=== PATIENT | male | born 1990 | race Hispanic/Latino ===

== ENCOUNTER 2023-08-10 06:39 | Day surgery (SDC) | payer OTHER ==
[2023-08-06 10:56] LABS: BASOPHILS # (AUTO) 0.03 K/uL (0.00-0.20); BASOPHILS % (AUTO) 0.4 % (0.0-5.0); EOSINOPHILS # (AUTO) 0.15 K/uL (0.00-0.70); EOSINOPHILS % (AUTO) 1.9 % (0.0-8.0); HEMATOCRIT 47.9 % (42-54); IMMATURE GRANULOCYTE ABSOLUTE 0.02 K/uL (0-1); LYMPHOCYTES # (AUTO) 3.4 K/uL (1.0-4.8); LYMPHOCYTES % (AUTO) 43.5 % (21.0-51.0); MEAN CORPUSCULAR HEMOGLOBIN 30.1 pg (27.0-33.0); MEAN CORPUSCULAR HGB CONC 34.7 g/dL (32.0-36.0); MEAN CORPUSCULAR VOLUME 86.9 fL (79-99); MONOCYTES # (AUTO) 0.6 K/uL (0.1-1.0); MONOCYTES % (AUTO) 7.1 % (3.0-13.0); NEUTROPHILS # (AUTO) 3.6 K/uL (1.8-7.7); NEUTROPHILS % (AUTO) 46.8 % (40.0-77.0); PLATELET COUNT (AUTO) 262 K/uL (130-400); RED BLOOD CELL COUNT(AUTO) 5.51 MIL/uL (4.50-6.20); RED CELL DISTRIBUTION WIDTH 12.8 % (11.0-15.5); WHITE BLOOD COUNT (AUTO) 7.7 K/uL (4.8-10.8)
[2023-08-06 10:57] LABS: ADD UA MICROSCOPIC YES; APPEARANCE,URINE CLEAR (CLEAR); BILIRUBIN,URINE NEGATIVE (NEGATIVE); COLOR,URINE YELLOW (YELLOW); GLUCOSE, URINE (UA) NEGATIVE (NEGATIVE); KETONES,URINE NEGATIVE (NEGATIVE); LEUKOCYTE ESTERASE ,URINE NEGATIVE Leu/uL (NEGATIVE); NITRATE,URINE NEGATIVE (NEGATIVE); OCCULT BLOOD,URINE NEGATIVE (NEGATIVE); PH,URINE 6.5 (5.0-8.0); PROTEIN,URINE 10 mg/dL (NEGATIVE); UROBILINOGEN,URINE 0.2 mg/dL (0.2-1.0)
[2023-08-06 11:00] LABS: MUCUS,URINE RARE LPF (None Seen); RBC,URINE 0-1 /HPF (0-1); SQUAMOUS EPITHELIAL CELL,UR RARE /HPF (0-2); WBC,URINE 0-1 /HPF (0-1)
[2023-08-06 11:06] LABS: INR < 0.93 (0.85-1.15); PROTHROMBIN TIME 10.8 SEC (9.6-11.6)
[2023-08-06 11:07] LABS: PARTIAL THROMBOPLASTIN TIME 29.1 SEC (26.3-35.5)
[2023-08-06 11:10] LABS: ALBUMIN 3.7 g/dL (3.5-5.0); BILIRUBIN,TOTAL 0.4 mg/dL (0.2-1.0); CREATININE 1.1 mg/dL (0.5-1.5); POTASSIUM 4.2 mmol/L (3.5-5.1); TOTAL PROTEIN, SERUM 8.3 g/dL (6.0-8.3)
[2023-08-06 11:35] VITALS: BP 149/90; PULSE 63; RESP 18
[2023-08-10] VITALS (26 sets, daily range): BP systolic 120–143; BP diastolic 78–99; PULSE 66–98; RESP 13–20
[~2023-08-10] VITALS: Ht 175.3 cm; Wt 87.8 kg
[2023-08-10] MEDS ORDERED: LACTATED RINGERS 1000ML 1,000 ML IV ONE (06:49)
[2023-08-10] MEDS: CEFAZOLIN SODIUM 2 GM VIAL ONE ×2 (06:57→08:30)
[2023-08-10] MEDS ORDERED: BUPIVACAINE/PF 0.25% 30ML VIAL IJ ONE (07:24)
[2023-08-10] MEDS ORDERED: KETAMINE 50MG/ML SYRINGE 50 MG/ML DISP.SYRIN ONE (07:44)
[2023-08-10] MEDS ORDERED: FENTANYL CITRATE PF 50 MCG/1 ML 5ML AMP IV ONE ×2 (07:44→09:46)
[2023-08-10] MEDS ORDERED: HYDROMORPHONE 1 MG INJ ONE (07:57)
[2023-08-10] MEDS ORDERED: MIDAZOLAM HCL 1 MG/ML 5ML VIAL ONE (08:06)
[2023-08-10] MEDS ORDERED: ONDANSETRON 4MG INJ ONE ×2 (08:42→10:44)
[2023-08-10] MEDS ORDERED: EPHEDRINE SULFATE 50 MG/ML AMPULE ONE (08:56)
[2023-08-10] MEDS ORDERED: NEOSTIGMINE 5MG/5ML SYR IV ONE (09:24)
[2023-08-10] MEDS ORDERED: LIDOCAINE PF 100MG/5ML (2%) SYRINGE 5ML ONE (09:24)
[2023-08-10] MEDS ORDERED: GLYCOPYRROLATE 1 MG/5 ML SYRINGE ONE (09:24)
[2023-08-10] MEDS ORDERED: DEXAMETHASONE SOD PHOSPHATE 10MG/ML 1ML VIAL ONE (09:24)
[2023-08-10] MEDS ORDERED: ROCURONIUM 10MG/1ML SYR 10 MG/ML ML ONE (09:24)
[2023-08-10] MEDS ORDERED: SUCCINYLCHOLINE 200MG/10ML SYR ONE (09:24)
[2023-08-10] MEDS ORDERED: PROPOFOL 10 MG/ML 20ML VIAL IV ONE (09:24)
[2023-08-10] MEDS ORDERED: KETOROLAC 30MG VIAL (30MG/ML) ONE (10:06)
[2023-08-10] MEDS ORDERED: MEPERIDINE-PF 25 MG/ML SYG ONE (10:44)
[2023-08-10 11:59] LABS: ALBUMIN 3.4 g/dL (3.5-5.0); BILIRUBIN,TOTAL 0.5 mg/dL (0.2-1.0); CREATININE 0.9 mg/dL (0.5-1.5); MAGNESIUM 1.9 mg/dL (1.80-2.40); POTASSIUM 3.6 mmol/L (3.5-5.1); TOTAL PROTEIN, SERUM 7.3 g/dL (6.0-8.3)
[2023-08-10] MEDS ORDERED: TRAMADOL HCL 50 MG TABLET ONE (14:01)
== END 2023-08-10 16:45 | disposition home or self-care (01) ==
LOC: DAH 06:39
PROVIDERS: ATTEND Student in an Organized Health Care Education/Training Program
DX: K42.9 Umbilical hernia without obstruction or gangrene (principal); K43.9 Ventral hernia without obstruction or gangrene; Z79.01 Long term (current) use of anticoagulants; Z98.890 Other specified postprocedural states; Z87.891 Personal history of nicotine dependence; Z83.3 Family history of diabetes mellitus
CPT/HCPCS: 49593; S2900; 36415; 80053; 81001; 83735; 85025; 85610; 85730; 93005; J0330; J1100; J1170; J1885; J2001; J2175; J2250; J2405; J2704; J2710; J3010; J3490; J7030; J7120; A4215; A4221; A4222; A4223; A4600; A4663; C1769; C1781; G0168; J0665; J0690